=== PATIENT | female | born 1980 | race Caucasian/White ===

== ENCOUNTER 2016-10-24 09:08 | Outpatient (CLI) | payer BC, MEDICARE ==
[2016-10-24 09:40] LABS: HEMOGLOBIN 10.6 gm/dl (12.3-15.3); WHITE BLOOD COUNT 8.4 K/UL (4.5-11.0)
== END 2016-10-24 10:50 | disposition home or self-care (01) ==
LOC: GENOP 09:08
PROVIDERS: Obstetrics & Gynecology
DX: Z01.812 Encounter for preprocedural laboratory examination (principal); O34.219 Maternal care for unspecified type scar from previous cesarean delivery; Z3A.00 Weeks of gestation of pregnancy not specified
CPT/HCPCS: 36415; 81001; 82962; 85025; J7030

== ENCOUNTER 2016-10-26 05:48 | Inpatient (IN) | payer BC, MEDICARE ==
[2016-10-26 08:56] LABS: BUN/CREATININE RATIO 16 (0-10)
[2016-10-27 02:58] LABS: HEMOGLOBIN 10.1 gm/dl (12.3-15.3)
[2016-10-28] MEDS ORDERED: COLACE 100MG C100 MG PO (10:54)
== END 2016-10-28 12:30 | disposition home or self-care (01) | DRG 765 ==
LOC: OB 05:48
PROVIDERS: ADMIT Obstetrics & Gynecology
PROC: 3E0R3CZ (ICD-10-PCS; 2016-10-26)
PROC: 3E0234Z Introduction of Serum, Toxoid and Vaccine into Muscle, Percutaneous Approach (ICD-10-PCS; 2016-10-26)
PROC: 10D00Z1 Extraction of Products of Conception, Low, Open Approach (ICD-10-PCS; principal; 2016-10-26 07:30)
DX: O34.219 Maternal care for unspecified type scar from previous cesarean delivery (principal); Z68.43 Body mass index [BMI] 50.0-59.9, adult; O24.425 Gestational diabetes mellitus in childbirth, controlled by oral hypoglycemic drugs; N85.8 Other specified noninflammatory disorders of uterus; O13.4 Gestational [pregnancy-induced] hypertension without significant proteinuria, complicating childbirth; O99.214 Obesity complicating childbirth; E66.01 Morbid (severe) obesity due to excess calories; Z3A.38 38 weeks gestation of pregnancy; Z37.0 Single live birth; O99.283 Endocrine, nutritional and metabolic diseases complicating pregnancy, third trimester; O99.343 Other mental disorders complicating pregnancy, third trimester; E28.2 Polycystic ovarian syndrome; F32.9 Major depressive disorder, single episode, unspecified; O99.513 Diseases of the respiratory system complicating pregnancy, third trimester; J45.909 Unspecified asthma, uncomplicated; Z23 Encounter for immunization; Z79.84 Long term (current) use of oral hypoglycemic drugs; Z79.899 Other long term (current) drug therapy; Z80.1 Family history of malignant neoplasm of trachea, bronchus and lung; Z80.3 Family history of malignant neoplasm of breast; Z83.3 Family history of diabetes mellitus; Z82.3 Family history of stroke; Z82.49 Family history of ischemic heart disease and other diseases of the circulatory system; Z81.8 Family history of other mental and behavioral disorders
CPT/HCPCS: 36415; 80048; 82800; 82962; 85014; 85018; 90715; C9113; J0690; J2250; J2270; J2300; J2405; J2590; J2765; J3430; J7030; J7120; Q0163

== ENCOUNTER → 2020-11-18 | Outpatient (CLI) | payer BC, OTHER ==
[~2020-11-18] MED LIST: COLACE 100MG C100 MG PO; GLUCOPHAGE1000 MG PO; IBUPROFEN600 MG PO; LORTAB 5-325 M1 EACH PO; NORCO 5-325 TA1 EACH PO; ZOLOFT100 MG PO
== END ==
LOC: KOH-I 10:09
DX: R74.8 Abnormal levels of other serum enzymes (principal); K76.0 Fatty (change of) liver, not elsewhere classified
CPT/HCPCS: 76705

== ENCOUNTER 2020-11-21 13:56 | Emergency (ER) | payer BC, OTHER | END 2020-11-21 17:55 | disposition left against medical advice (07) | LOC: ER1 13:56 | DX: Z53.21 Procedure and treatment not carried out due to patient leaving prior to being seen by health care provider (principal) | CPT/HCPCS: 93005 ==

== ENCOUNTER 2021-04-07 12:38 | Emergency (ER) | payer BC, OTHER | END 2021-04-07 16:26 | disposition home or self-care (01) | LOC: ER1 12:38 | DX: U07.1 COVID-19 (principal); E11.9 Type 2 diabetes mellitus without complications | CPT/HCPCS: 99283 ==

== ENCOUNTER → 2022-05-17 | Outpatient (CLI) | payer BC, OTHER | LOC: KOH-I 09:27 | DX: K76.0 Fatty (change of) liver, not elsewhere classified (principal); R16.1 Splenomegaly, not elsewhere classified | CPT/HCPCS: 76700 ==